=== PATIENT | male | born 1980 | race Caucasian/White ===

== ENCOUNTER 2023-04-22 05:36 | Emergency (ER) | payer SELFPAY ==
[~2023-04-22] VITALS: Ht 177.8 cm; Wt 108.9 kg
[2023-04-22 05:41] VITALS: BP 163/105; PULSE 103; RESP 15; TEMP 97.9; O2SAT 96
== END 2023-04-22 06:55 ==
LOC: MED 05:36
DX: Z02.89 Encounter for other administrative examinations (principal); I10 Essential (primary) hypertension; V89.2XXA Person injured in unspecified motor-vehicle accident, traffic, initial encounter; Y93.89 Activity, other specified; Y92.410 Unspecified street and highway as the place of occurrence of the external cause; Y99.8 Other external cause status
CPT/HCPCS: 99283